=== PATIENT | male | born 1965 | race Caucasian/White ===

== ENCOUNTER 2021-07-08 18:22 | Emergency (ER) | payer OTHER ==
[2021-07-08] MEDS ORDERED: traMADol 50 MG Tab PO ONE ×2 (18:23→21:39)
[2021-07-08] MEDS ORDERED: Iopamidol 612 MG/ML 100 ML Bottle IVPUSH ONE (18:47)
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
[2021-07-08] MEDS ORDERED: HYDROmorphone 1 MG/ML Syringe IVPUSH ONE ×2 (18:52→20:24)
[2021-07-08 19:24] LABS: ANION GAP 17.4 mEq/L (7-13); CHLORIDE,CL 103 mmol/L (98-107); SODIUM,NA 139 mmol/L (136-145)
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
[2021-07-08 20:56] LABS: AMPHETAMINES,URINE NEGATIVE (NEGATIVE); BARBITURATES,URINE NEGATIVE (NEGATIVE); BENZODIAZEPINE,URINE NEGATIVE (NEGATIVE); MDMA (ECSTASY), URINE NEGATIVE (NEGATIVE); METHADONE,URINE NEGATIVE (NEGATIVE); METHAMPHETAMINES,URINE NEGATIVE (NEGATIVE); OPIATES,URINE POSITIVE (NEGATIVE); OXYCODONE,URINE NEGATIVE (NEGATIVE); PHENCYCLIDINE,URINE NEGATIVE (NEGATIVE); TCA,URINE NEGATIVE (NEGATIVE)
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
[2021-07-08] MEDS ORDERED: traMADol 50 MG Tab ONE (21:45)
== END 2021-07-08 22:01 | disposition home or self-care (01) ==
LOC: DL.ED 18:22
DX: S32.020A Wedge compression fracture of second lumbar vertebra, initial encounter for closed fracture (principal); R07.81 Pleurodynia; Z20.822 Contact with and (suspected) exposure to COVID-19; V29.9XXA Motorcycle rider (driver) (passenger) injured in unspecified traffic accident, initial encounter; Y93.55 Activity, bike riding
CPT/HCPCS: 36415; 70450; 71045; 71260; 72100; 72125; 74177; 80053; 80305; 80307; 81003; 84484; 85025; 85610; 87635; 93005; 96374; 96376; 99284; A9270; J1170; Q9967; U0002

== ENCOUNTER 2023-11-08 04:39 | Emergency (ER) | payer OTHER ==
[2023-11-08] MEDS ORDERED: Ibuprofen 600 MG Tab PO ONE (04:47)
[2023-11-08] MEDS ORDERED: Take Home: Acetaminophen/HYDROcodone 325-5 MG, 5 Tab Pack PO ONE (05:16)
[2023-11-08] MEDS ORDERED: Acetaminophen/HYDROcodone 325-10 MG Tab PO ONE (05:16)
== END 2023-11-08 05:32 | disposition home or self-care (01) ==
LOC: DL.ED 04:39
DX: M17.12 Unilateral primary osteoarthritis, left knee (principal)
CPT/HCPCS: 73562; 99283; A9270